=== PATIENT | female | born 1950 | race Caucasian/White ===

== ENCOUNTER 2017-08-20 09:07 | Emergency (ER) | payer OTHER ==
[2017-08-20] MEDS ORDERED: HYDROCODONE/APAP 10/325 TAB ONE (09:54)
[2017-08-20] MEDS ORDERED: CYCLOBENZAPRINE 10 MG TAB ONE (09:54)
[2017-08-20 10:42] LABS: Urine Blood NEGATIVE (NEG); Urine Glucose NEGATIVE (NEG); Urine Protein NEGATIVE (NEG); Urine pH 5.5 (5.0-7.0)
--- NOTE | 2017-08-20 12:22 | EDPHYS ---
Physician Documentation [facility] Name: Bharati Fajardo Age: 67 yrs Sex: Female : 1950 Arrival Date: 08/20/2017 Time: 09:12 Bed 4 Private MD: ED Physician Lawrence Rendon HPI: 08/20 16:35 This 67 yrs old Female presents to ER via Ambulatory with complaints of Flank kdr Pain. 16:35 The patient complains of pain in the right mid back. The pain radiates. Onset: The kdr symptoms/episode began/occurred gradually. Severity of pain: At its worst the pain was mild in the emergency department the pain is unchanged. The patient has experienced similar episodes in the past, The patient had the one episodes . 16:35 She was walking backward and tripped landing on a piece of furniture. kdr Historical: - Allergies: 09:42 NKA; iw - Home Meds: 09:42 esomeprazole magnesium 40 mg oral cpDR 1 cap once daily [Active]; fluoxetine 20 mg Oral iw cap 1 cap once daily [Active]; bupropion HCl 300 mg Oral Tb24 1 tab once daily [Active]; Yoly-D 12 Hour 60-120 mg Oral Tb12 1 tab [Active]; Xanax 1 mg Oral tab twice a day [Active]; Lunesta 3 mg oral tab 1 tab once daily [Active]; dicyclomine 20 mg Oral tab [Active]; tramadol 50 mg Oral tab [Active]; hydrocodone-acetaminophen 7.5-325 mg Oral tab [Active]; - PSHx: 09:42 Hysterectomy; Carpal Tunnel Repair; iw - Immunization history:: Adult Immunizations unknown. - Social history:: Smoking status: Patient/guardian denies using tobacco. ROS: 16:35 Constitutional: Negative for fever, chills, and weight loss, Eyes: Negative for injury, kdr pain, redness, and discharge, ENT: Negative for injury, pain, and discharge, Neck: Negative for injury, pain, and swelling, Respiratory: Negative for shortness of breath, cough, wheezing, and pleuritic chest pain, Abdomen/GI: Negative for abdominal pain, nausea, vomiting, diarrhea, and constipation, Back: Negative for injury and pain, : Negative for injury, bleeding, discharge, and swelling, MS/Extremity: Negative for injury and deformity, Skin: Negative for injury, rash, and discoloration, Neuro: Negative for headache, weakness, numbness, tingling, and seizure activity. Psych: Negative for depression, anxiety, suicide ideation, homicidal ideation, and hallucinations, Allergy/Immunology: Negative for hives, rash, and allergies, Endocrine: Negative for neck swelling, polydipsia, polyuria, polyphagia, and marked weight changes, Hematologic/Lymphatic: Negative for swollen nodes, abnormal bleeding, and unusual bruising. 16:35 Cardiovascular: Positive for Right lateral thorax pain. Exam: 16:35 Constitutional: This is a well developed, well nourished patient who is awake, alert, kdr and in no acute distress. Head/Face: Normocephalic, atraumatic. Eyes: Pupils equal round and reactive to light, extra-ocular motions intact. Lids and lashes normal. Conjunctiva and sclera are non-icteric and not injected. Cornea within normal limits. Periorbital areas with no swelling, redness, or edema. Neck: Trachea midline, no thyromegaly or masses palpated, and no cervical lymphadenopathy. Supple, full range of motion without nuchal rigidity, or vertebral point tenderness. No Meningismus. Cardiovascular: Regular rate and rhythm with a normal S1 and S2. No gallops, murmurs, or rubs. Normal PMI, no JVD. No pulse deficits. Respiratory: Lungs have equal breath sounds bilaterally, clear to auscultation and percussion. No rales, rhonchi or wheezes noted. No increased work of breathing, no retractions or nasal flaring. Abdomen/GI: Soft, non-tender, with normal bowel sounds. No distension or tympany. No guarding or rebound. No evidence of tenderness throughout. Back: No spinal tenderness. No costovertebral tenderness. Full range of motion. Skin: Warm, dry with normal turgor. Normal color with no rashes, no lesions, and no evidence of cellulitis. MS/ Extremity: Pulses equal, no cyanosis. Neurovascular intact. Full, normal range of motion. Neuro: Awake and alert, GCS 15, oriented to person, place, time, and situation. Cranial nerves II-XII grossly intact. Motor strength 5/5 in all extremities. Sensory grossly intact. Cerebellar exam normal. Normal gait. Psych: Awake, alert, with orientation to person, place and time. Behavior, mood, and affect are within normal limits. 16:35 Chest/axilla: Inspection: ecchymosis, that is mild, Right lateral flank CVA ecchymosis, Palpation: crepitus, is not appreciated, tenderness, that is mild, Same area. Vital Signs: 09:42 Pulse 96; Resp 18 S; Temp 98.2; Pulse Ox 99% on R/A; Weight 70.31 kg; Height 5 ft. 2 iw in. (157.48 cm); Pain 8/10; 09:59 BP 128 / 72; la1 12:54 BP 108 / 81; Pulse 81; Resp 19; Pulse Ox 100% on R/A; la1 09:42 Body Mass Index 28.35 (70.31 kg, 157.48 cm) iw MDM: 12:22 Patient medically screened. kdr 16:35 Data reviewed: vital signs, nurses notes, radiologic studies. Counseling: I had a kdr detailed discussion with the patient and/or guardian regarding: the historical points, exam findings, and any diagnostic results supporting the discharge/admit diagnosis, radiology results, the need for outpatient follow up. 08/20 10:19 Order name: Urine Dipstick--Ancillary (enter results); Complete Time: 11:06 08/20 09:52 Order name: CXR XRAY [facility] 08/20 09:52 Order name: Ribs Right XRAY [facility] 08/20 12:24 Order name: INCENTIVE SPIROMETRY [facility] 08/20 09:52 Order name: Urine Dipstick-Ancillary (obtain specimen); Complete Time: 10:20 [facility] Administered Medications: 09:58 Drug: Flexeril 10 mg Route: PO; la1 12:27 Follow up: Response: No adverse reaction; Pain is decreased la1 09:59 Drug: [place] 10 mg-325 mg 1 tabs Route: PO; la1 12:27 Follow up: Response: No adverse reaction; Pain is decreased la1 Disposition: 08/20/17 12:22 Discharged to Home. Impression: Fracture of one rib, right side. - Condition is Stable. - Discharge Instructions: Rib Fracture, [id number]. - Prescriptions for Tylenol- Codeine #3 300-30 mg Oral Tablet - take 2 tablets by ORAL route every 6 hours As needed Take one to two tablets every 4 - 6 hours PRN Pain; 30 tablet. - Medication Reconciliation Form, Thank You Letter, Prescription Opioid Use form. - Follow up: Private Physician; When: 2 - 3 days; Reason: If symptoms return, Further diagnostic work-up, Recheck today's complaints, Continuance of care, Re-evaluation by your physician. - Problem is an ongoing problem. - Symptoms have improved. Signatures: Dispatcher [employer] EDLawrence Infante MD MD [facility] Ava Guerra RN RN iw Per Velasquez RN RN la1
--- NOTE | 2017-08-20 12:22 | ER ---
Nurse's Notes [facility] Name: Bharati Fajardo Age: 67 yrs Sex: Female : 1950 Arrival Date: 08/20/2017 Time: 09:12 Bed 4 Private MD: Diagnosis: Fracture of one rib, right side Presentation: 08/20 09:38 Presenting complaint: Patient states: started having right flank pain radiating to back iw yesterday around 5 pm, feels like sharp pinching, has hx of kidney stones, feels different than previous kidney stone, also had a fall on Wednesday, with bruising to right side. Transition of care: patient was not received from another setting of care. Onset of symptoms was August 19, 2017. Initial Sepsis Screen: Does the patient meet any 2 criteria? No. Patient's initial sepsis screen is negative. Does the patient have a suspected source of infection? No. Patient's initial sepsis screen is negative. Care prior to arrival: None. 09:38 Method Of Arrival: Ambulatory iw 09:38 Acuity: ESTEPHANIA 3 iw Historical: - Allergies: 09:42 NKA; iw - Home Meds: 09:42 esomeprazole magnesium 40 mg oral cpDR 1 cap once daily [Active]; fluoxetine 20 mg Oral iw cap 1 cap once daily [Active]; bupropion HCl 300 mg Oral Tb24 1 tab once daily [Active]; Yoly-D 12 Hour 60-120 mg Oral Tb12 1 tab [Active]; Xanax 1 mg Oral tab twice a day [Active]; Lunesta 3 mg oral tab 1 tab once daily [Active]; dicyclomine 20 mg Oral tab [Active]; tramadol 50 mg Oral tab [Active]; hydrocodone-acetaminophen 7.5-325 mg Oral tab [Active]; - PSHx: 09:42 Hysterectomy; Carpal Tunnel Repair; iw - Immunization history:: Adult Immunizations unknown. - Social history:: Smoking status: Patient/guardian denies using tobacco. Screenin:00 Abuse screen: Denies threats or abuse. Nutritional screening: No deficits noted. la1 Tuberculosis screening: No symptoms or risk factors identified. Fall Risk Fall in past 12 months (25 points). No secondary diagnosis (0 pts). No IV (0 pts). Ambulatory Aid- None/Bed Rest/Nurse Assist (0 pts). Gait- Normal/Bed Rest/Wheelchair (0 pts) Total Montero Fall Scale indicates No Risk (0-24 pts). Assessment: 09:59 General: Appears uncomfortable, Behavior is calm, cooperative. Pain: Complains of pain la1 in posterior aspect of right lateral abdomen and anterior aspect of right lateral abdomen. Neuro: Level of Consciousness is awake, alert, obeys commands, Oriented to person, place, time, situation, Moves all extremities. Full function Gait is steady, Speech is normal, Facial symmetry appears normal. Cardiovascular: Heart tones S1 S2 present Capillary refill < 3 seconds Patient's skin is warm and dry. Respiratory: Airway is patent Respiratory effort is even, unlabored, Respiratory pattern is regular, symmetrical. GI: Abdomen is round non-distended, Bowel sounds present X 4 quads. Abd is soft and non tender X 4 quads. bruising noted to Right flank/back from reported fall on wednesday. 11:14 Reassessment: Patient appears in no apparent distress at this time. No changes from la1 previously documented assessment. Patient and/or family updated on plan of care and expected duration. Pain level reassessed. Patient is alert, oriented x 3, equal unlabored respirations, skin warm/dry/pink. 12:21 Reassessment: Patient appears in no apparent distress at this time. No changes from la1 previously documented assessment. Patient and/or family updated on plan of care and expected duration. Pain level reassessed. Patient is alert, oriented x 3, equal unlabored respirations, skin warm/dry/pink. Vital Signs: 09:42 Pulse 96; Resp 18 S; Temp 98.2; Pulse Ox 99% on R/A; Weight 70.31 kg; Height 5 ft. 2 iw in. (157.48 cm); Pain 8/10; 09:59 BP 128 / 72; la1 12:54 BP 108 / 81; Pulse 81; Resp 19; Pulse Ox 100% on R/A; la1 09:42 Body Mass Index 28.35 (70.31 kg, 157.48 cm) iw ED Course: 09:12 Patient arrived in ED. mr 09:37 Lawrence Rendon MD is Attending Physician. kdr 09:40 Triage completed. iw 09:42 Arm band placed on. iw 09:58 Attema, Per, RN is Primary Nurse. la1 10:01 Call light in reach. Side rails up X 1. la1 11:59 CXR XRAY In Process Unspecified. EDMS 11:59 Ribs Right XRAY In Process Unspecified. EDMS 12:27 INCENTIVE SPIROMETRY Sent. la1 12:54 No provider procedures requiring assistance completed. Patient did not have IV access la1 during this emergency room visit. Administered Medications: 09:58 Drug: Flexeril 10 mg Route: PO; la1 12:27 Follow up: Response: No adverse reaction; Pain is decreased la1 09:59 Drug: [place] 10 mg-325 mg 1 tabs Route: PO; la1 12:27 Follow up: Response: No adverse reaction; Pain is decreased la1 Outcome: 12:22 Discharge ordered by . kdr 12:54 Discharged to home ambulatory. la1 12:54 Condition: stable 12:54 Discharge instructions given to patient, Instructed on discharge instructions, follow up and referral plans. medication usage, Demonstrated understanding of instructions, follow-up care, medications, Prescriptions given X 1. 12:54 Patient left the ED. la1 Signatures: Dispatcher [employer] EDMS Lawrence Rendon MD MD kdr Rivera, Maria mr Ava Guerra RN RN iw Attema, Lee, RN RN la1
--- NOTE | 2017-08-20 12:39 | RAD REPORT ---
EXAM DESCRIPTION: RAD - Chest Single View - 08/20/2017 12:14 pm CLINICAL HISTORY: Abdominal pain, flank pain COMPARISON: December 2014 TECHNIQUE: AP portable chest image was obtained 1148 hours . FINDINGS: Lung volumes are low compared to the prior study. This accentuates the baseline interstiti al pattern. Focal scarring or atelectasis present in the mid right lung field. No consolidation or ma ss lesion. Failure and volume overload are not suspected. Heart and vasculature are normal. No measur able pleural effusion and no pneumothorax. No acute bone finding. No acute aortic findings suspected. IMPRESSION: Chronic interstitial lung disease similar to the prior study. Lung markings are accentua judith by shallow inspiration. No failure, infiltrate or other acute cardiopulmonary finding.
--- NOTE | 2017-08-20 12:43 | RAD REPORT ---
EXAM DESCRIPTION: Ribs Right - 08/20/2017 12:14 pm CLINICAL HISTORY: Right-sided rib pain, fall COMPARISON: Chest films same date FINDINGS: Nondisplaced fractures of the anterolateral right sixth and seventh ribs are evident. No d isplaced rib fractures seen. No aggressive rib lesion. No underlying pneumothorax, effusion, infiltrate or pulmonary contusion. IMPRESSION: Nondisplaced anterolateral right sixth and seventh rib fractures.
[2017-08-20 13:01] VITALS: TEMP 98.2
[2017-08-20 13:02] VITALS: BP 108/81; O2SAT 100
== END 2017-08-20 12:54 | disposition home or self-care (01) ==
LOC: ER 09:07
DX: S22.31XA Fracture of one rib, right side, initial encounter for closed fracture (principal); W01.0XXA Fall on same level from slipping, tripping and stumbling without subsequent striking against object, initial encounter; Y93.9 Activity, unspecified; Y92.9 Unspecified place or not applicable
CPT/HCPCS: 71045; 81003; 99283

== ENCOUNTER 2019-03-22 07:27 | Emergency (ER) | payer OTHER ==
[2019-03-22] MEDS ORDERED: HYDROCODONE/APAP 7.5/325 MG TAB ONE (08:25)
--- NOTE | 2019-03-22 09:38 | EDPHYS ---
Physician Documentation [facility] Name: Bharati Fajardo Age: 69 yrs Sex: Female : 1950 Arrival Date: 03/22/2019 Time: 07:29 Bed 13 Private MD: Willie Escobedo T ED Physician Lawrence Rendon HPI: 03/22 08:08 This 69 yrs old Female presents to ER via Ambulatory with complaints of Fall kdr Injury. 08:08 Details of fall: The patient fell from an upright position, while standing, while kdr walking. Onset: The symptoms/episode began/occurred suddenly, 1 week(s) ago. Associated injuries: The patient sustained injury to the chest, contusion, pain with breathing, pain with movement. Severity of symptoms: At their worst the symptoms were mild, in the emergency department the symptoms are unchanged. The patient has not experienced similar symptoms in the past. The patient has not recently seen a physician. Historical: - Allergies: 07:57 NKA; ae4 - Home Meds: 07:57 Xanax 1 mg Oral tab twice a day [Active]; tramadol 50 mg Oral tab [Active]; fluoxetine ae4 20 mg Oral cap 1 cap once daily [Active]; Lunesta 3 mg Oral tab 1 tab once daily [Active]; bupropion HCl 300 mg Oral Tb24 1 tab once daily [Active]; - Immunization history:: Adult Immunizations up to date. - Social history:: Smoking status: Patient/guardian denies using tobacco. - Ebola Screening: : Patient denies travel to an Ebola-affected area in the 21 days before illness onset No symptoms or risks identified at this time. ROS: 08:08 Constitutional: Negative for fever, chills, and weight loss, Eyes: Negative for injury, kdr pain, redness, and discharge, ENT: Negative for injury, pain, and discharge, Neck: Negative for injury, pain, and swelling, Respiratory: Negative for shortness of breath, cough, wheezing, and pleuritic chest pain, Abdomen/GI: Negative for abdominal pain, nausea, vomiting, diarrhea, and constipation, Back: Negative for injury and pain, : Negative for injury, bleeding, discharge, and swelling, MS/Extremity: Negative for injury and deformity, Skin: Negative for injury, rash, and discoloration, Neuro: Negative for headache, weakness, numbness, tingling, and seizure activity. Psych: Negative for depression, anxiety, suicide ideation, homicidal ideation, and hallucinations, Allergy/Immunology: Negative for hives, rash, and allergies, Endocrine: Negative for neck swelling, polydipsia, polyuria, polyphagia, and marked weight changes, Hematologic/Lymphatic: Negative for swollen nodes, abnormal bleeding, and unusual bruising. 08:08 Cardiovascular: Positive for chest pain, with cough, with movement, of the right breast. Exam: 08:08 Constitutional: This is a well developed, well nourished patient who is awake, alert, kdr and in no acute distress. Head/Face: Normocephalic, atraumatic. Eyes: Pupils equal round and reactive to light, extra-ocular motions intact. Lids and lashes normal. Conjunctiva and sclera are non-icteric and not injected. Cornea within normal limits. Periorbital areas with no swelling, redness, or edema. Neck: Trachea midline, no thyromegaly or masses palpated, and no cervical lymphadenopathy. Supple, full range of motion without nuchal rigidity, or vertebral point tenderness. No Meningismus. Cardiovascular: Regular rate and rhythm with a normal S1 and S2. No gallops, murmurs, or rubs. Normal PMI, no JVD. No pulse deficits. Respiratory: Lungs have equal breath sounds bilaterally, clear to auscultation and percussion. No rales, rhonchi or wheezes noted. No increased work of breathing, no retractions or nasal flaring. Abdomen/GI: Soft, non-tender, with normal bowel sounds. No distension or tympany. No guarding or rebound. No evidence of tenderness throughout. Back: No spinal tenderness. No costovertebral tenderness. Full range of motion. Skin: Warm, dry with normal turgor. Normal color with no rashes, no lesions, and no evidence of cellulitis. MS/ Extremity: Pulses equal, no cyanosis. Neurovascular intact. Full, normal range of motion. Neuro: Awake and alert, GCS 15, oriented to person, place, time, and situation. Cranial nerves II-XII grossly intact. Motor strength 5/5 in all extremities. Sensory grossly intact. Cerebellar exam normal. Normal gait. Psych: Awake, alert, with orientation to person, place and time. Behavior, mood, and affect are within normal limits. 08:08 Chest/axilla: Inspection: normal, Palpation: tenderness, that is mild, of the right breast. Vital Signs: 07:46 BP 131 / 94; Pulse 90; Resp 18; Temp 98; Pulse Ox 98% ; Weight 70.31 kg (R); Pain 8/10; ae4 08:30 BP 129 / 89; Pulse 86; Resp 18; Pulse Ox 96% on R/A; ae4 09:35 BP 106 / 80; Pulse 72; Resp 17; Pulse Ox 96% on R/A; ae4 MDM: 08:08 Data reviewed: vital signs, nurses notes, radiologic studies. Counseling: I had a kdr detailed discussion with the patient and/or guardian regarding: the historical points, exam findings, and any diagnostic results supporting the discharge/admit diagnosis, radiology results, the need for outpatient follow up. 09:36 Patient medically screened. [facility] 03/22 08:07 Order name: CXR XRAY [facility] 03/22 08:07 Order name: Ribs Right XRAY [facility] Administered Medications: 08:27 Drug: [place] (7.5 mg-325 mg) 1 tabs Route: PO; ae4 09:46 Follow up: Response: Pain is decreased; RASS: Alert and Calm (0) ae4 Disposition: 03/22/19 09:36 Discharged to Home. Impression: Multiple fractures of ribs, right side. - Condition is Stable. - Discharge Instructions: Rib Fracture, [id number]. - Prescriptions for Ibuprofen 600 mg Oral Tablet - take 1 tablet by ORAL route every 6 hours As needed take with food; 15 tablet. Tylenol- Codeine #3 300-30 mg Oral Tablet - take 2 tablets by ORAL route every 6 hours As needed; 14 tablet. Cyclobenzaprine 5 mg Oral Tablet - take 1 tablet by ORAL route 3 times per day As needed; 15 tablet. - Medication Reconciliation Form, Thank You Letter, Prescription Opioid Use form. - Follow up: Willie Escobedo MD; When: 2 - 3 days; Reason: If symptoms return, Further diagnostic work-up, Recheck today's complaints, Continuance of care, Re-evaluation by your physician. - Problem is an ongoing problem. - Symptoms have improved. Signatures: Dispatcher [employer] EDAK Lawrence Rendon MD MD kdr Tim Montilla, RN RN ae4 Corrections: (The following items were deleted from the chart) 10:14 09:36 03/22/2019 09:36 Discharged to Home. Impression: Multiple fractures of ribs, ae4 right side. Condition is Stable. Forms are Medication Reconciliation Form, Thank You Letter, Antibiotic Education, Prescription Opioid Use. Follow up: Willie Escobedo; When: 2 - 3 days; Reason: If symptoms return, Further diagnostic work-up, Recheck today's complaints, Continuance of care, Re-evaluation by your physician. Problem is an ongoing problem. Symptoms have improved. kdr
--- NOTE | 2019-03-22 09:38 | ER ---
Nurse's Notes [facility] Name: Bharati Fajardo Age: 69 yrs Sex: Female : 1950 Arrival Date: 03/22/2019 Time: 07:29 Bed 13 Private MD: Willie Escobedo T Diagnosis: Multiple fractures of ribs, right side Presentation: 03/22 07:44 Presenting complaint: Patient states: Patient reports she fell one week prior, tripped ae4 over her puppy and struck her right rib area on the cement driveway and is still experiencing pain today. Mechanism of Injury: Fall from standing position. 07:44 Acuity: ESTEPHANIA 4 ae4 07:44 Method Of Arrival: Ambulatory ae4 10:13 Transition of care: patient was not received from another setting of care. Onset of ae4 symptoms was March 22, 2019. Risk Assessment: Do you want to hurt yourself or someone else? Patient reports no desire to harm self or others. Initial Sepsis Screen: Does the patient meet any 2 criteria? No. Patient's initial sepsis screen is negative. Does the patient have a suspected source of infection? No. Patient's initial sepsis screen is negative. Care prior to arrival: None. Triage Assessment: 07:30 General: Behavior is calm, cooperative. General: Appears in no apparent distress. ae4 uncomfortable. Pain: Complains of pain in left lateral posterior chest. EENT: No signs and/or symptoms were reported regarding the EENT system. wears glasses.. Neuro: Level of Consciousness is awake, alert, obeys commands, Oriented to person, place, time, situation, Appropriate for age. Cardiovascular: Patient's skin is warm and dry. Respiratory: Airway is patent Respiratory effort is even, unlabored, shallow, Respiratory pattern is regular, Breath sounds are clear bilaterally. GI: No signs and/or symptoms were reported involving the gastrointestinal system. Abdomen is round. : No signs and/or symptoms were reported regarding the genitourinary system. Derm: Skin is pink, warm \\T\\ dry. Musculoskeletal: no visible deformity. Historical: - Allergies: 07:57 NKA; ae4 - Home Meds: 07:57 Xanax 1 mg Oral tab twice a day [Active]; tramadol 50 mg Oral tab [Active]; fluoxetine ae4 20 mg Oral cap 1 cap once daily [Active]; Lunesta 3 mg Oral tab 1 tab once daily [Active]; bupropion HCl 300 mg Oral Tb24 1 tab once daily [Active]; - Immunization history:: Adult Immunizations up to date. - Social history:: Smoking status: Patient/guardian denies using tobacco. - Ebola Screening: : Patient denies travel to an Ebola-affected area in the 21 days before illness onset No symptoms or risks identified at this time. Screenin:08 Abuse screen: Denies threats or abuse. Nutritional screening: No deficits noted. ae4 Tuberculosis screening: No symptoms or risk factors identified. Fall Risk None identified. Fall in past 12 months (25 points). No secondary diagnosis (0 pts). No IV (0 pts). Ambulatory Aid- None/Bed Rest/Nurse Assist (0 pts). Gait- Normal/Bed Rest/Wheelchair (0 pts) Mental Status- Oriented to own ability (0 pts). Assessment: 07:58 General: Appears in no apparent distress. uncomfortable. Pain: Complains of pain in ae4 chest and anterior aspect of right lateral abdomen. 09:34 Reassessment: Patient appears in no apparent distress at this time. Patient reports the ae4 "medicine is starting to kick in." Patient states feeling better. 10:01 Reassessment: Friend is at bedside, pt states friend will take her home. Awaiting ae4 provider to discuss plan of care. Patient states feeling better. Vital Signs: 07:46 BP 131 / 94; Pulse 90; Resp 18; Temp 98; Pulse Ox 98% ; Weight 70.31 kg (R); Pain 8/10; ae4 08:30 BP 129 / 89; Pulse 86; Resp 18; Pulse Ox 96% on R/A; ae4 09:35 BP 106 / 80; Pulse 72; Resp 17; Pulse Ox 96% on R/A; ae4 ED Course: 07:29 Patient arrived in ED. rg4 07:29 Willie Escobedo MD is Private Physician. rg4 07:30 Arm band placed on right wrist. ae4 07:33 Tim Montilla RN is Primary Nurse. ae4 07:45 Lawrence Rendon MD is Attending Physician. kdr 07:46 Triage completed. ae4 07:58 Bed in low position. Call light in reach. Side rails up X 1. Pulse ox on. NIBP on. ae4 08:55 CXR XRAY In Process Unspecified. EDMS 08:55 Ribs Right XRAY In Process Unspecified. EDMS 08:55 X-ray completed. Patient tolerated procedure well. Patient moved back from radiology. ml 09:36 Willie Escobedo MD is Referral Physician. kdr 10:08 No provider procedures requiring assistance completed. Patient did not have IV access ae4 during this emergency room visit. Administered Medications: 08:27 Drug: [place] (7.5 mg-325 mg) 1 tabs Route: PO; ae4 09:46 Follow up: Response: Pain is decreased; RASS: Alert and Calm (0) ae4 Outcome: 09:36 Discharge ordered by . kdr 10:14 Discharged to home ambulatory, with friend. ae4 10:14 Condition: stable 10:14 Discharge instructions given to patient, Instructed on discharge instructions, follow up and referral plans. Demonstrated understanding of instructions, Prescriptions given X 3. 10:14 Patient left the ED. ae4 Signatures: Dispatcher [employer] EDAZ Lawrence Rendon MD MD kdr Lopez, Gala Debi Carvajal rg4 Tim Montilla, RN RN ae4 Corrections: (The following items were deleted from the chart) 10:03 10:01 Reassessment: Friend is at bedside, pt states friend will take her home. Patient ae4 states feeling better. ae4
[2019-03-22 10:21] VITALS: TEMP 98
[2019-03-22 10:22] VITALS: O2SAT 96
[2019-03-22 10:24] VITALS: BP 106/80
--- NOTE | 2019-03-22 10:41 | RAD REPORT ---
EXAM DESCRIPTION: Ribs Right - 03/22/2019 8:55 am CLINICAL HISTORY: Right rib pain FINDINGS: Cortical irregularity involves 2 lower anterior right ribs likely minimally displaced frac tures.
--- NOTE | 2019-03-22 10:42 | RAD REPORT ---
EXAM DESCRIPTION: Sundeep Single View03/22/2019 8:55 am CLINICAL HISTORY: Chest pain COMPARISON: 2018 FINDINGS: The lungs appear clear of acute infiltrate. The heart is normal size
== END 2019-03-22 10:14 | disposition home or self-care (01) ==
LOC: ER 07:27
DX: S22.31XA Fracture of one rib, right side, initial encounter for closed fracture (principal); W01.0XXA Fall on same level from slipping, tripping and stumbling without subsequent striking against object, initial encounter; Y93.89 Activity, other specified; Y92.9 Unspecified place or not applicable
CPT/HCPCS: 71045; 99284